=== PATIENT | female | born 1975 | race Caucasian/White ===

== ENCOUNTER 2020-09-29 16:05 | Outpatient (CLI) | payer OTHER, SELFPAY ==
--- NOTE | ~2020-09-29 | MR_ITS ---
. EXAMINATION: MR lumbar spine wo con DATE: 09/29/2020 17:37 INDICATION: Lumbar radiculopathy. TECHNIQUE: Magnetic resonance imaging (MRI) of the lumbar spine was performed without intravenous con trast. Sequences included sagittal T2-weighted FSE, sagittal T2-weighted FS FSE, sagittal T1-weighted FSE, and axial T2-weighted FSE. COMPARISON: None FINDINGS: Bone alignment is normal. There are Schmorl's nodes from T11-T12 through L2-L3. There is mi ldly decreased disc height at L3-L4. There is moderately decreased disc height at L5-S1 with endplate remodeling. The distal spinal cord signal intensity is normal. The conus medullaris is at L1-L2. The following disc levels are specifically discussed: L1-L2: The disc does not extend beyond the endplate margin. There is mild bilateral facet joint osteo arthritis. There is no neural foraminal stenosis. There is no central canal stenosis. L2-L3: The disc does not extend beyond the endplate margin. There is mild bilateral facet joint osteo arthritis. There is no neural foraminal stenosis. There is no central canal stenosis. L3-L4: The disc is bulging. There is mild bilateral facet joint osteoarthritis. There is mild bilater al neural foraminal stenosis. There is mild central canal stenosis. L4-L5: The disc is bulging. There is mild bilateral facet joint osteoarthritis. There is mild left ne ural foraminal stenosis. There is no central canal stenosis. L5-S1: The disc is bulging and has an annular fissure. There is mild bilateral facet joint osteoarthr itis. There is mild bilateral neural foraminal stenosis. There is mild central canal stenosis. IMPRESSION: 1. Mild lumbar spondylosis. Reviewed, dictated and finalized at location A. CIPAL DEVELOPER IMPRESSION: 1. Mild lumbar spondylosis.
--- NOTE | ~2020-09-29 | MR_ITS ---
EXAMINATION: MR cervical spine wo con DATE: 09/29/2020 17:37 INDICATION: Cervical radiculopathy. TECHNIQUE: Magnetic resonance imaging (MRI) of the cervical spine was performed without intravenous c ontrast. Sequences included sagittal T2-weighted FSE, sagittal STIR FSE, sagittal T1-weighted FSE, ax ial MERGE, and axial T2-weighted FSE. COMPARISON: None FINDINGS: Bone alignment is normal. Vertebral body heights are normal. There is mildly decreased disc height at C4-C5. The spinal cord signal intensity is normal. The following disc levels are specifica lly discussed: C2-C3: There is a central extrusion. There is no uncovertebral joint osteoarthritis. There is moderat e right and severe left facet joint osteoarthritis. There is mild bilateral neural foraminal stenosis . There is no central canal stenosis. C3-C4: The disc is bulging. There is mild left uncovertebral joint osteoarthritis. There is mild righ t and severe left facet joint osteoarthritis. There is mild left neural foraminal stenosis. There is mild disc is bulging. central canal stenosis. C4-C5: The disc is bulging. There is mild bilateral uncovertebral joint osteoarthritis. There is mild right and moderate left facet joint osteoarthritis. There is mild left neural foraminal stenosis. Th ere is mild central canal stenosis. C5-C6: The disc does not extend beyond the endplate margin. There is no uncovertebral joint osteoarth ritis. There is mild bilateral facet joint osteoarthritis. There is no neural foraminal stenosis. The re is no central canal stenosis. C6-C7: The disc is bulging. There is no uncovertebral joint osteoarthritis. There is no facet joint o steoarthritis. There is mild right neural foraminal stenosis. There is no central canal stenosis. C7-T1: The disc does not extend beyond the endplate margin. There is no uncovertebral joint osteoarth ritis. There is mild bilateral facet joint osteoarthritis. There is no neural foraminal stenosis. The re is no central canal stenosis. IMPRESSION: 1. Mild cervical spondylosis. Reviewed, dictated and finalized at location A. UNTING SYSTEM EXPERT
== END 2020-09-29 16:06 ==
PROVIDERS: Visit Provider Nurse Practitioner Family
DX: M47.26 Other spondylosis with radiculopathy, lumbar region (principal); M47.22 Other spondylosis with radiculopathy, cervical region
CPT/HCPCS: 72141; 72148

== ENCOUNTER 2022-12-21 19:08 | Emergency (ER) | payer OTHER, MEDICAID, SELFPAY ==
[2022-12-21 19:14] VITALS: BP 110/70; PULSE 91; RESP 20; TEMP 36.5; O2SAT 100
[2022-12-21] MEDS: ACETAMINOPHEN 500 MG TABLET 1000 MG PO (20:13)
[2022-12-21] MEDS: IBUPROFEN 400 MG TABLET 800 MG PO (20:14)
[2022-12-21 20:27] VITALS: BP 119/70; PULSE 80; O2SAT 98
[2022-12-21 20:54] VITALS: BP 167/106; PULSE 93; O2SAT 99
[2022-12-21 21:04] VITALS: BP 131/60; PULSE 78; O2SAT 98
--- NOTE | 2022-12-21 21:54 | ED.GENADULT ---
HPI - General Adult General Chief complaint: Back Pain/Injury Stated complaint: chronic hip, neck, and back pain Time Seen by Provider: 12/21/22 19:23 History of Present Illness HPI narrative: This is a 47-year-old female with history of chronic pain presenting to ED with left leg pain. Patient states that every time she steps on her right leg she gets a stabbing in her brain. Patient has that she has had chronic pain with this for a long period of time. She has seen a pain specialist. She has taken [place] 7.5 mg x 5 and standing x4 today. She has not taken Motrin or Tylenol. She follows with a pain specialist Dr. Cordova. patient denies weakness but the pain is starting to inhibit her function. Related Data Home Medications Medication Instructions Recorded Confirmed albuterol sulfate 90 mcg/actuation 1 inh inhalation Q4H 11/11/22 aerosol inhaler dulaglutide 4.5 mg/0.5 mL 4.5 mg subcut WEEKLY 11/11/22 subcutaneous pen injector (Trulicity) hydrocodone 5 mg-acetaminophen 325 1 tablet PO Q8H PRN 11/11/22 mg tablet insulin degludec 100 unit/mL (3 15 unit subcut QHS 11/11/22 mL) subcutaneous pen (Tresiba FlexTouch U-100 insulin) insulin lispro 100 unit/mL 1 sliding scale dose subcut 11/11/22 subcutaneous cartridge (Humalog USEASDIRECTD U-100 Insulin) metformin 1,000 mg tablet 1,000 mg PO BID 11/11/22 tiotropium bromide 2.5 2 puff inhalation DAILY 11/11/22 mcg/actuation mist for inhalation (Spiriva Respimat) buspirone 7.5 mg tablet 15 mg PO BID 11/28/22 cyclobenzaprine 10 mg tablet 10 mg PO 11/28/22 dextroamphetamine-amphetamine 20 20 mg PO TID 11/28/22 mg tablet (Adderall) glimepiride 2 mg tablet 2 mg PO BID 11/28/22 lidocaine 5 % topical ointment 1 applic topical 11/28/22 methylprednisolone 4 mg tablets in 4 mg PO 11/28/22 a dose pack phentermine 15 mg capsule 15 mg PO DAILY 11/28/22 topiramate 50 mg tablet 50 mg PO 11/28/22 Allergies Allergy/AdvReac Type Severity Reaction Status Date / Time baclofen Allergy Severe Hives Verified 11/28/22 08:25 cephalexin [From Keflex] Allergy Severe Anaphylactic Verified 11/28/22 08:25 Shock ketorolac [From Toradol] Allergy Severe Itching Verified 11/28/22 08:25 meloxicam [From Mobic] Allergy Severe Rash Verified 11/28/22 08:25 tramadol Allergy Severe Hives Verified 11/28/22 08:25 fluticasone furoate Allergy Rash Verified 12/21/22 19:10 [From Breo Ellipta] oxycodone Allergy Anaphylaxis Verified 12/21/22 19:10 vilanterol Allergy Rash Verified 12/21/22 19:10 [From Breo Ellipta] PMFSH Past Medical History Medical History Abnormal breast biopsy ADHD Asthma Chronic pain due to trauma FH: cholecystectomy Hip dysplasia Large mass of right breast Mitral valve dysplasia Screening mammogram for breast cancer Type 2 diabetes with decreased circulation Unsatisfactory cervical Papanicolaou smear Surgical History Surgical History Delivery by section History of tonsillectomy Family History Family History Sibling Congestive heart failure Diabetes mellitus Father Lung cancer Mother Diabetes mellitus Other Heart disease Hypertension Social History Social History Smoking packs per day: 1.5 Smoking cigarettes per day: 30.0 Years smoked: 35 Smoking pack-years: 52.50 Smoking status: Current every day smoker Alcohol intake: current Substance use: current Last use: thc cbd Living arrangements: with family Additional living arrangements comments: boyfriend and children Occupation/Education: unemployed Gender identity (if verbalized by the patient): Female Sexual Orientation (if Verbalized by the Patient): Straight or Heterosexual Exam Narrative: APPEARANCE:
[2022-12-21 22:29] VITALS: BP 128/79; PULSE 72; O2SAT 99
== END 2022-12-21 22:30 | disposition home or self-care (01) ==
PROVIDERS: Emergency Provider Emergency Medicine
DX: G89.29 Other chronic pain (principal); M25.551 Pain in right hip; M54.9 Dorsalgia, unspecified; M54.2 Cervicalgia; E11.9 Type 2 diabetes mellitus without complications; F17.210 Nicotine dependence, cigarettes, uncomplicated; Z79.891 Long term (current) use of opiate analgesic
CPT/HCPCS: 96365; 99284; A9270; J7050

== ENCOUNTER 2023-07-18 22:32 | Observation (INO) | payer OTHER, MEDICAID, SELFPAY ==
--- NOTE | ~2023-07-18 | CT_ITS ---
CT of the Abdomen and Pelvis, and of the lumbar spine: Indication: Pain Technique: 2.5 mm axial scans were obtained through the abdomen and pelvis following intravenous adm inistration of 100 cc of Omnipaque 350. Axial imaging of the lumbar spine was also performed. Dose re duction technique was used on this scan by utilizing automated exposure control and iterative reconst ruction technique. The dose-length product (DLP) was 903.48 mGy-cm. Abdomen/pelvis Findings: Scans through the lung bases demonstrates subtle mosaic attenuation pattern . The liver, spleen, pancreas, and kidneys are within normal limits. Cholecystectomy clips are present. There is a 2 cm left adrenal nodule. There is a 1 cm right adrenal nodule. These are both indetermin ate by Hounsfield units. There are atherosclerotic calcifications of the aorta. No lymphadenopathy. No bowel obstruction or bowel wall thickening. There is no evidence to suggest acute appendicitis. Images through the pelvis were performed. Urinary bladder unremarkable. 2.2 cm right ovarian cyst not ed. No ascites. Lumbar spine findings: There is no fracture or subluxation lumbar spine. Vertebral bodies maintain no rmal height and alignment. There is severe degenerative disc narrowing at L5-S1. Remaining interverte bral discs are well-preserved. At L1-L2, L2-L3, L3-L4, L4-L5, there is no significant disc bulge or herniation. No spinal canal sten osis or neural foraminal narrowing at these levels. At L5-S1, there is mild disc bulge with minimal facet hypertrophy. No spinal canal stenosis. There is advanced bilateral neural foraminal compromise. Impression: Subtle mosaic attenuation pattern of the lungs. Diagnostic considerations could include bronchiolitis , asthma, hypersensitivity pneumonitis, or chronic interstitial disease. Bilateral adrenal nodules, indeterminate, as detailed above. Consider follow-up nonemergent MR to att empt to confirm adenoma. Severe bilateral neural foraminal narrowing at L5-S1, as detailed above. Reviewed, dictated and finalized at location M. PROCESSOR Impression: Subtle mosaic attenuation pattern of the lungs. Diagnostic considerations could include bronchiolitis, asthma, hypersensitivity pneumonitis, or chronic inters titial disease. Bilateral adrenal nodules, indeterminate, as detailed above. Consider follow-up nonemergent MR to attempt to confirm adenoma. Severe bilateral neural foraminal narrowing at L5-S1, as detailed above.
--- NOTE | ~2023-07-18 | MR_ITS ---
EXAMINATION: MR lumbar spine wo con DATE: 07/19/2023 09:11 INDICATION: Lumbar stenosis. Leg weakness. TECHNIQUE: Magnetic resonance imaging (MRI) of the lumbar spine was performed without intravenous con trast. Sequences included sagittal T2-weighted FSE, sagittal T2-weighted FS FSE, sagittal T1-weighted FSE, and axial T2-weighted FSE. COMPARISON: Lumbar spine MRI 09/29/2020 FINDINGS: Bone alignment is normal. There is mild chronic anterior wedging of T12 vertebral body. The re are Schmorl's nodes at multiple levels. There is severely decreased disc height at L5-S1 with endp late remodeling. The distal spinal cord signal intensity is normal. The conus medullaris is at L1-L2. The following disc levels are specifically discussed: L1-L2: The disc does not extend beyond the endplate margin. There is mild bilateral facet joint osteo arthritis. There is no neural foraminal stenosis. There is no central canal stenosis. L2-L3: The disc does not extend beyond the endplate margin. There is moderate right and mild left fac et joint osteoarthritis. There is no neural foraminal stenosis. There is no central canal stenosis. L3-L4: The disc is bulging. There is mild bilateral facet joint osteoarthritis. There is mild bilater al neural foraminal stenosis. There is mild central canal stenosis. L4-L5: This is bulging and has an annular fissure. There is moderate bilateral facet joint osteoarthr itis. There is mild bilateral neural foraminal stenosis. There is no central canal stenosis. L5-S1: The disc is bulging and has an annular fissure. There is mild right and moderate left facet abigail int osteoarthritis. There is mild right and moderate left neural foraminal stenosis. There is mild ce ntral canal stenosis. IMPRESSION: 1. Severe lower lumbar spondylosis, worsened from 09/29/2020. Reviewed, dictated and finalized at location A. TENANCE OPERATOR
[2023-07-18 22:36] VITALS: BP 111/68; PULSE 83; RESP 15; TEMP 36.6; O2SAT 98
[2023-07-19] VITALS (8 sets, daily range): BP systolic 100–135; BP diastolic 55–75; PULSE 71–98; RESP 14–20; TEMP 36.3–36.8; O2SAT 74–100; BMI 33.1; BMI 33.8
[2023-07-19 00:34] LABS: Basophils Absolute Auto 0.1 K/mm3 (0.0-0.1); Eosinophils Absolute Auto 0.4 K/mm3 (0-0.3); Eosinophils Percent Auto 4.4 % (0-4.4); Hematocrit 44.9 % (37.0-47.0); Hemoglobin 14.6 g/dL (12.0-15.0); Immature Granulocyte Absolute 0.05 K/mm3 (0.00-0.031); Immature Granulocyte Percent A 0.5 % (0-0.5); Lymphocytes Absolute Auto 3.33 K/mm3 (0.9-3.2); Lymphocytes Percent Auto 33.1 % (18.3-44.2); Mean Corpuscular HGB Conc 32.5 g/dl (32-36); Mean Corpuscular Hemoglobin 30.3 pg (26-34); Mean Corpuscular Volume 93.2 fl (80-100); Mean Platelet Volume 9.6 fl (7.4-10.4); Monocytes Absolute Auto 0.7 K/mm3 (0.1-0.6); Monocytes Percent Auto 6.9 % (2.6-8.5); Neutrophils Absolute Auto 5.4 K/mm3 (1.3-6.7); Neutrophils Percent Auto 54.1 % (45.5-73.1); Platelet Count Result 294 k/mm3 (150-375); Red Blood Count 4.82 M/mm3 (4.2-5.4); Red Cell Distribution Width 12.9 % (11.5-14.5); White Blood Count 10.1 K/mm3 (4.5-10.0)
[2023-07-19 00:49] LABS: Lactic Acid Reflex 1.3 mmol/L (0.7-2.0)
[2023-07-19 00:50] LABS: Alanine Aminotransferase 14 U/L (6-35); Albumin Level 3.7 g/dL (3.5-5.1); Alkaline Phosphatase 86 U/L (38-126); Anion Gap 3 mmol/L (8-16); Aspartate Amino Transferase 17 U/L (14-36); Bilirubin,Total 0.2 mg/dL (0.2-1.3); Blood Urea Nitrogen 14 mg/dL (7-17); Calcium 9.1 mg/dL (8.4-10.2); Carbon Dioxide 25 mmol/L (22-30); Chloride 106 mmol/L (98-107); Estimated CRCL calculation 109 ml/min; Estimated Glomerular Filt Rate > 60; Glucose 174 mg/dL (65-110); Potassium 4.2 mmol/L (3.4-5.0); Sodium 134 mmol/L (137-145)
--- NOTE | 2023-07-19 01:04 | ED.LOWEXIN ---
HPI - Extremity Injury (Lower) General Chief Complaint: Extremity Injury, Lower Stated Complaint: right hip pain Time Seen by Provider: 07/18/23 23:54 History of Present Illness HPI Narrative: patient presents the emergency department complained of her right leg going out. She has had symptoms since December 2022. She has had chronic leg pain for. In December she started have steroid injections. She has had increasing symptoms for the past couple months and specifically has been falling frequently over the past 3-4 days. Her primary care doctor prescribes fentanyl and Lyrica. She has seen multiple different pain management doctors. She denies urinary or stool incontinence. Denies symptoms consistent with saddle anesthesia. Related Data Home Medications Medication Instructions Recorded Confirmed albuterol sulfate 90 mcg/actuation 1 inh inhalation Q4H 11/11/22 07/19/23 aerosol inhaler dulaglutide 4.5 mg/0.5 mL 4.5 mg subcut WEEKLY 11/11/22 07/19/23 subcutaneous pen injector (Trulicity) insulin degludec 100 unit/mL (3 15 unit subcut QHS 11/11/22 07/19/23 mL) subcutaneous pen (Tresiba FlexTouch U-100 insulin) insulin lispro 100 unit/mL 1 sliding scale dose subcut 11/11/22 07/19/23 subcutaneous cartridge (Humalog USEASDIRECTD U-100 Insulin) metformin 1,000 mg tablet 1,000 mg PO BID 11/11/22 07/19/23 dextroamphetamine-amphetamine 20 20 mg PO TID 11/28/22 07/19/23 mg tablet (Adderall) glimepiride 2 mg tablet 2 mg PO BID 11/28/22 07/19/23 celecoxib 200 mg capsule 200 mg PO BID 07/19/23 07/19/23 fentanyl 12 mcg/hr transdermal 07/19/23 patch nortriptyline 25 mg capsule 25 mg PO HS 07/19/23 07/19/23 pregabalin 75 mg capsule (Lyrica) 75 mg PO TID 07/19/23 07/19/23 Allergies Allergy/AdvReac Type Severity Reaction Status Date / Time baclofen Allergy Severe Hives Verified 07/19/23 07:05 cephalexin [From Keflex] Allergy Severe Anaphylactic Verified 07/19/23 07:05 Shock ketorolac [From Toradol] Allergy Severe Itching Verified 07/19/23 07:05 meloxicam [From Mobic] Allergy Severe Rash Verified 07/19/23 07:05 oxycodone Allergy Severe Anaphylaxis Verified 07/19/23 07:09 tramadol Allergy Severe Hives Verified 07/19/23 07:05 fluticasone furoate Allergy Rash Verified 07/19/23 07:05 [From Breo Ellipta] vilanterol Allergy Rash Verified 07/19/23 07:05 [From Breo Ellipta] Review of Systems Review of Systems: negative except what is documented in the [facility] Past Medical History Medical History Abnormal breast biopsy ADHD Asthma Chronic pain due to trauma FH: cholecystectomy Hip dysplasia Large mass of right breast Mitral valve dysplasia Screening mammogram for breast cancer Type 2 diabetes with decreased circulation Unsatisfactory cervical Papanicolaou smear Surgical History Surgical History Delivery by section History of tonsillectomy Family History Family History Sibling Congestive heart failure Diabetes mellitus Father Lung cancer Mother Diabetes mellitus Other Heart disease Hypertension Social History Social History Smoking packs per day: 2.5 Smoking cigarettes per day: 50.0 Years smoked: 35 Smoking pack-years: 87.50 Smoking status: Current every day smoker Tobacco type: cigarettes Alcohol intake: current Drinks per week: 1 Substance use: never Last use: thc cbd Lack of Transportation: No Lack of Food: Never True Current Housing: I Have Housing Concerned About Future Housing: No Difficulty Paying Gas/Electric Bills: YES Difficulty Paying for Meds: No Currently Unemployed: YES Education: Associate Degree Difficulty w/ Childcare or Family Care: YES Living arrangements: with family Additional living arran
[2023-07-19 02:02] LABS: Appearance Urine Turbid (Clear); Bacteria Urine 4+ /hpf; Bilirubin Urine Negative (Negative); Blood Urine Negative (Negative); Color Urine Yellow (Yellow); Glucose Urine UA 2+ mg/dL (Negative); Ketones Urine Negative (Negative); Leukocyte Esterase Ur Negative LEU/UL (Negative); Nitrate Urine Positive (Negative); Non Pathogenic Casts 0-2; Protein Urine Negative (Negative); RBC Urine 0-2 /hpf (0-2); Squamous Epithelial Cell Urine Few /hpf (Few); pH Urine 5.5 (5.0-9.0)
[2023-07-19 02:13] LABS: Specific Grav Ur 1.057 (1.001-1.035)
[2023-07-19 02:14] LABS: Add Urine Microscopic? YES
--- NOTE | 2023-07-19 03:45 | PC.NURSE ---
Pt was taken to and from bathroom in wheelchair and ambulated back to bed with steady gait.
--- NOTE | 2023-07-19 06:10 | PM.IMHP ---
H&P: HPI History of Present Illness Date/Time: 07/19/23 06:10 Chief Complaint: back pain Narrative: patient history of chronic back pain which is worsening, she has been following up with orthopedic surgeon and she was told that she would need surgery however this would not be done unless she cut down on tobacco use. She presents the emergency department complained of her right leg going out.? She has had symptoms since December 2022.? She has had chronic leg pain for.? In December she started have steroid injections.? She has had increasing symptoms for the past couple months and specifically has been falling frequently over the past 3-4 days.? Her primary care doctor prescribes fentanyl and Lyrica.? She has seen multiple different pain management doctors.? She denies urinary or stool incontinence.? Denies symptoms consistent with saddle anesthesia.? she was evaluated in the ER found to have severe narrowing of L5-S1, causative factor patient is unable to bear weight, I was consulted to admit this patient for further evaluation with MRI. during my encounter the patient, she has had pain is made no she would have preferred discharged on pain medication. Review of Systems Review of Systems: All systems reviewed & are unremarkable except as noted in HPI and below PMFSH Past Medical History Medical History Abnormal breast biopsy ADHD Asthma Chronic pain due to trauma FH: cholecystectomy Hip dysplasia Large mass of right breast Mitral valve dysplasia Screening mammogram for breast cancer Type 2 diabetes with decreased circulation Unsatisfactory cervical Papanicolaou smear Surgical History Surgical History Delivery by section History of tonsillectomy Family History Family History Sibling Congestive heart failure Diabetes mellitus Father Lung cancer Mother Diabetes mellitus Other Heart disease Hypertension Social History Social History Smoking packs per day: 1.5 Smoking cigarettes per day: 30.0 Years smoked: 35 Smoking pack-years: 52.50 Smoking status: Current every day smoker Alcohol intake: current Substance use: current Last use: thc cbd Living arrangements: with family Additional living arrangements comments: boyfriend and children Occupation/Education: unemployed Gender identity (if verbalized by the patient): Female Sexual Orientation (if Verbalized by the Patient): Straight or Heterosexual Meds Home Medications and Allergies Home Medications Medication Instructions Recorded Confirmed Type albuterol sulfate 90 mcg/actuation 1 inh inhalation Q4H 11/11/22 History aerosol inhaler dulaglutide 4.5 mg/0.5 mL 4.5 mg subcut WEEKLY 11/11/22 History subcutaneous pen injector (Trulicity) hydrocodone 5 mg-acetaminophen 325 1 tablet PO Q8H PRN 11/11/22 History mg tablet insulin degludec 100 unit/mL (3 15 unit subcut QHS 11/11/22 History mL) subcutaneous pen (Tresiba FlexTouch U-100 insulin) insulin lispro 100 unit/mL 1 sliding scale dose subcut 11/11/22 History subcutaneous cartridge (Humalog USEASDIRECTD U-100 Insulin) metformin 1,000 mg tablet 1,000 mg PO BID 11/11/22 History tiotropium bromide 2.5 2 puff inhalation DAILY 11/11/22 History mcg/actuation mist for inhalation (Spiriva Respimat) buspirone 7.5 mg tablet 15 mg PO BID 11/28/22 History cyclobenzaprine 10 mg tablet 10 mg PO 11/28/22 History dextroamphetamine-amphetamine 20 20 mg PO TID 11/28/22 History mg tablet (Adderall) glimepiride 2 mg tablet 2 mg PO BID 11/28/22 History lidocaine 5 % topical ointment 1 applic topical 11/28/22 History methylprednisolone 4 mg tablets in 4 mg PO 11/28/22 History a dose pack phentermine 15 mg capsule 15 mg PO DAILY
[2023-07-19] MEDS: levoFLOXacin 500 MG/D5W 100 ML 500 MG/100 ML BAG 100 MG IVPB (06:25)
[2023-07-19] MEDS: MORPHINE SULFATE (*CRX) 2 MG/ML INJ IV PUSH ×2 (07:49→15:18)
[2023-07-19 08:00] LABS: Basophils Absolute Auto 0.1 K/mm3 (0.0-0.1); Basophils Percent Auto 0.9 % (0.2-1.2); Eosinophils Absolute Auto 0.4 K/mm3 (0-0.3); Eosinophils Percent Auto 4.7 % (0-4.4); Hematocrit 45.7 % (37.0-47.0); Hemoglobin 14.5 g/dL (12.0-15.0); Immature Granulocyte Absolute 0.03 K/mm3 (0.00-0.031); Immature Granulocyte Percent A 0.3 % (0-0.5); Lymphocytes Absolute Auto 2.97 K/mm3 (0.9-3.2); Lymphocytes Percent Auto 33.2 % (18.3-44.2); Mean Corpuscular HGB Conc 31.7 g/dl (32-36); Mean Corpuscular Hemoglobin 30.2 pg (26-34); Mean Corpuscular Volume 95.2 fl (80-100); Mean Platelet Volume 9.5 fl (7.4-10.4); Monocytes Absolute Auto 0.6 K/mm3 (0.1-0.6); Monocytes Percent Auto 6.8 % (2.6-8.5); Neutrophils Absolute Auto 4.8 K/mm3 (1.3-6.7); Neutrophils Percent Auto 54.1 % (45.5-73.1); Platelet Count Result 289 k/mm3 (150-375)
[2023-07-19 08:08] LABS: Anion Gap 5 mmol/L (8-16); Blood Urea Nitrogen 14 mg/dL (7-17); Calcium 8.9 mg/dL (8.4-10.2); Carbon Dioxide 28 mmol/L (22-30); Chloride 104 mmol/L (98-107); Estimated CRCL calculation 97 ml/min; Estimated Glomerular Filt Rate > 60; Glucose 130 mg/dL (65-110); Potassium 4.1 mmol/L (3.4-5.0); Sodium 137 mmol/L (137-145)
[2023-07-19] MEDS: CELECOXIB 200 MG CAPSULE PO ×2 (09:35→17:18)
[2023-07-19] MEDS: metFORMIN HCL 500 MG TABLET 1000 MG PO ×2 (09:35→17:18)
[2023-07-19] MEDS: PREGABALIN (*CRX) 75 MG CAPSULE PO ×3 (09:36→17:18)
[2023-07-19] MEDS: GLIMEPIRIDE 2 MG TABLET PO ×2 (09:36→17:18)
[2023-07-19 12:31] LABS: Glucose Point of Care 202 mg/dl (65-105)
[2023-07-19] MEDS: INSULIN ASPART (*BKC) 100 UNITS/ML SUB-Q (12:34)
--- NOTE | 2023-07-19 15:24 | PM.IMPN ---
Progress Note: A&P Assessment and Plan (1) Lumbar radiculopathy: Code(s): M54.16 - Radiculopathy, lumbar region Status: Acute Assessment and Plan: worsening MRI, neuro surgery consulted. Patient also reports torn labrum and gluteus minimus on the affected extremity. This may be orthopedic or neurologic in nature however, there appears to be a component of medication seeking. (2) UTI (urinary tract infection): Code(s): N39.0 - Urinary tract infection, site not specified Status: Acute Assessment and Plan: Started with IV levofloxacin in the emergency department offered oral levofloxacin even if she signs out against medical advice. Also offered to urine culture and follow up on results if she were to to leave against medical advice. (3) Chronic back pain: Code(s): M54.9 - Dorsalgia, unspecified; G89.29 - Other chronic pain Status: Acute Assessment and Plan: Chronic back pain neck pain right hip pain prior trauma 3 years ago. Patient reported that she will need a walker. I offered to write a prescription for a walker upon discharge even if she leaves against medical advice but we could he and out the physical equipment. Plan NSGY consult UTI treatment even if patient leaves AMA Walker prescription even if patient leaves AMA Discussed we cannot give ketamine infusion for pain and we cannot escalate fentanyl patch prescription Time Spent With Patient Time with patient: Greater than 35 minutes Subjective Date/time seen: 07/19/23 15:24 Interval history: Patient admitted for MRI of lumbar spine due to right leg pain and weakness decreased function time. Patient reports that she only wanted to seek pain relief and that previously she had received ketamine in the emergency department and was pain free for 2 weeks. She reports that her primary care provider prescribes low-dose fentanyl patch but her PCP is also her psychiatrist's and they have been sending her to pain management where as pain management will only do injections and not narcotic pain medication. Patient denies any saddle paresthesias or urinary retention. Her bowels are normal functioning. She reports that she has previously seen neuro surgery and they will not do surgery on her because she is still smoking. She reports that she has an appointment upcoming with Orthopedics in a few days because she has right hip labrum and gluteus minimus tears. Patient tells me that she was not seeking admission and does not understand why the ER had to admit her however the report is that patient would not agree to discharge home from the ER so there is conflicting information regarding reason for admission. Patient initially told nursing that she had be discharged by noon today or else she would to leave AMA. MRI was completed showing significant stenosis worse since last exam. Due to decreased function in the leg we will fulfill our due diligence by consulting Neurosurgery. Patient now stating that she will see Neurosurgery as long as they see her today. Review of Systems Review of Systems: All systems reviewed & are unremarkable except as noted in HPI and below Exam Narrative: ?GENERAL: Well-appearing, well-nourished, and in no acute distress. HEAD: Normocephalic, atraumatic. EYES: PERRLA and EOMI. ENT: Nares clear, no rhinorrhea or epistaxis.? Mucous membranes moist. NECK: Supple. CHEST: Clear to auscultation.? No respiratory distress. HEART: Regular rate and rhythm. ABDOMEN: Soft, nontender, nondistended. EXTREMITIES: no injury, no tenderness. pt lower extremity strength 4/5 on the right and 5/5 on the left, able to transfer wheelchair to bed easily SKIN: Warm, dry, no rash. NEURO: No focal deficits.? Alert and oriented x3. PSYCH: Variable mood and affect ? Objective Data Vital Signs Vital Signs: Vital Signs - 24 hr 07/18/23 22:36 07/19/23 01:54 07/19/23 04:00 Temperature 36.6 C Pulse Rate 83 7
[2023-07-19 17:21] LABS: Glucose Point of Care 105 mg/dl (65-105)
--- NOTE | 2023-07-19 17:43 | WPDNEUROSGCN ---
Assessment and Plan Assessment and plan (1) Right hip pain: Code(s): M25.551 - Pain in right hip Status: Acute (2) Lumbar spondylosis: Code(s): M47.816 - Spondylosis without myelopathy or radiculopathy, lumbar region Status: Acute Plan Ms. Roth is a 47-year-old female with a long history of back pain and approximately one year of right groin, hip, and anterior thigh pain who presented to the ER last night for intractable groin and thigh pain. On physical exam, she has significant pain with hip flexion and JOHN testing. MRI lumbar spine shows degenerative disc disease at L5-S1 with mild right neuroforaminal stenosis. I discussed with her that I do not think her current symptoms are related to her lumbar spine. I would not recommend any intervention for her back at this time but would instead recommend inpatient vs outpatient orthopedic evaluation. She fortunately has an outpatient appointment scheduled already in 2 days. If she needs any further follow up for her back, she can follow up with Dr. George at [facility] as she is already established with his team and has been offered surgery. Consult date: 07/19/23 HPI: Damaris Roth is a 47 year old female with history of DM who presented to the ER last night with intractable right groin and anterior thigh pain. The patient has a long history of back pain for which she has seen Dr. George's team at [facility] and has reportedly been offered surgery if she were to quit smoking. She reports a one-year history of right-sided hip pain radiating into the groin and anterior thigh without radiation past the knee. This is severe when walking. For the last 2-3 months, her leg will give out when walking. She has some mild similar pain on the left side. She denies paresthesias or bowel/bladder changes. She has also been seeing an orthopedic surgeon through [facility] for her hip and has been found to have a number of pathologies related to the hip as well. She has had an injection in the hip in the past which was helpful. She has follow up with this physician this coming Monday. Review of Systems Review of Systems: All systems reviewed & are unremarkable except as noted in HPI and below PMFSH Past Medical History Medical History Abnormal breast biopsy ADHD Asthma Chronic pain due to trauma FH: cholecystectomy Hip dysplasia Large mass of right breast Mitral valve dysplasia Screening mammogram for breast cancer Type 2 diabetes with decreased circulation Unsatisfactory cervical Papanicolaou smear Surgical History Surgical History Delivery by section History of tonsillectomy Family History Family History Sibling Congestive heart failure Diabetes mellitus Father Lung cancer Mother Diabetes mellitus Other Heart disease Hypertension Social History Social History Smoking packs per day: 2.5 Smoking cigarettes per day: 50.0 Years smoked: 35 Smoking pack-years: 87.50 Smoking status: Current every day smoker Tobacco type: cigarettes Alcohol intake: current Drinks per week: 1 Substance use: never Last use: thc cbd Lack of Transportation: No Lack of Food: Never True Current Housing: I Have Housing Concerned About Future Housing: No Difficulty Paying Gas/Electric Bills: YES Difficulty Paying for Meds: No Currently Unemployed: YES Education: Associate Degree Difficulty w/ Childcare or Family Care: YES Living arrangements: with family Additional living arrangements comments: boyfriend and children Occupation/Education: unemployed Gender identity (if verbalized by the patient): Female Sexual Orientation (if Verbalized by the Patient): Straight or Heterosexual Spiritual care co
--- NOTE | 2023-07-19 17:52 | PM.DS ---
DS: Admitting Diagnosis Discharge Date 07/19/2023 Admitting Diagnosis Lumbar radiculopathy, UTI, chronic back pain DS: Discharge Diagnosis Discharge Diagnosis (1) Lumbar radiculopathy: Code(s): M54.16 - Radiculopathy, lumbar region Status: Acute (2) UTI (urinary tract infection): Code(s): N39.0 - Urinary tract infection, site not specified Status: Acute (3) Chronic back pain: Code(s): M54.9 - Dorsalgia, unspecified; G89.29 - Other chronic pain Status: Chronic (4) Right hip pain: Code(s): M25.551 - Pain in right hip Status: Chronic DS: Summary Hospital Course Reason for hospitalization: decreased function right leg, lumbar stenosis Hospital Course: 07/19 H&P: patient? history of chronic back pain which is worsening, she has been following up with orthopedic surgeon and she was told that she would need surgery however this would not be done unless she cut down on tobacco use. She presents the emergency department complained of her right leg going out.? She has had symptoms since December 2022.? She has had chronic leg pain for.? In December she started have steroid injections.? She has had increasing symptoms for the past couple months and specifically has been falling frequently over the past 3-4 days.? Her primary care doctor prescribes fentanyl and Lyrica.? She has seen multiple different pain management doctors.? She denies urinary or stool incontinence.? Denies symptoms consistent with saddle anesthesia.? ?she was evaluated in the ER found to have severe narrowing of L5-S1,? causative factor patient is unable to bear weight,? I was consulted to admit this patient for further evaluation with MRI. ? during my encounter the patient,? she has had pain is made no she would have preferred discharged on pain medication. 07/19 Rounds: Patient admitted for MRI of lumbar spine due to right leg pain and weakness decreased function time.? Patient reports that she only wanted to seek pain relief and that previously she had received ketamine in the emergency department and was pain free for 2 weeks.? She reports that her primary care provider prescribes low-dose fentanyl patch but her PCP is also her psychiatrist's and they have been sending her to pain management where as pain management will only do injections and not narcotic pain medication.? Patient denies any saddle paresthesias or urinary retention.? Her bowels are normal functioning.? She reports that she has previously seen neuro surgery and they will not do surgery on her because she is still smoking.? She reports that she has an appointment upcoming with Orthopedics in a few days because she has right hip labrum and gluteus minimus tears.? Patient tells me that she was not seeking admission and does not understand why the ER had to admit her however the report is that patient would not agree to discharge home from the ER so there is conflicting information regarding reason for admission.? Patient initially told nursing that she had be discharged by noon today or else she would to leave AMA.? MRI was completed showing significant stenosis worse since last exam.? Due to decreased function in the leg we will fulfill our due diligence by consulting Neurosurgery.? Patient now stating that she will see Neurosurgery as long as they see her today. 07/19 Discharge: patient was evaluated by Neurosurgery and her lumbar stenosis does not seem to be the problem with her right leg pain and weakness. She has torn muscles in her right hip for which she has orthopedic appointment in a few days. Neuro surgery cleared patient for discharge and patient insisted on discharge probably. We did prescribe Levaquin for urinary tract infection and wrote a prescription for a 2 wheeled walker. Time Spent with Patient Time attestation: Total time spent providing and/or coordinating discharge services: 35 minutes Time spent: Greater than 30 minutes Exam Narrative: ?GENERAL
== END 2023-07-19 18:35 | disposition home or self-care (01) ==
LOC: ANHED 07-19 00:01 → ANH2MED 07-19 06:18
PROVIDERS: Admitting Provider Student in an Organized Health Care Education/Training Program; Emergency Provider Emergency Medicine; Visit Provider Student in an Organized Health Care Education/Training Program
DX: M47.816 Spondylosis without myelopathy or radiculopathy, lumbar region (principal); G89.29 Other chronic pain; M79.604 Pain in right leg; M25.551 Pain in right hip; R29.6 Repeated falls; N39.0 Urinary tract infection, site not specified; B96.20 Unspecified Escherichia coli [E. coli] as the cause of diseases classified elsewhere; F90.9 Attention-deficit hyperactivity disorder, unspecified type; E11.59 Type 2 diabetes mellitus with other circulatory complications; Q23.8 Other congenital malformations of aortic and mitral valves; J45.909 Unspecified asthma, uncomplicated; F17.210 Nicotine dependence, cigarettes, uncomplicated; F10.90 Alcohol use, unspecified, uncomplicated; Z79.51 Long term (current) use of inhaled steroids; Z79.52 Long term (current) use of systemic steroids; Z79.3 Long term (current) use of hormonal contraceptives; Z79.85 Long-term (current) use of injectable non-insulin antidiabetic drugs; Z79.1 Long term (current) use of non-steroidal anti-inflammatories (NSAID); Z79.4 Long term (current) use of insulin; Z79.891 Long term (current) use of opiate analgesic; Z79.899 Other long term (current) drug therapy; Z83.3 Family history of diabetes mellitus; Z82.49 Family history of ischemic heart disease and other diseases of the circulatory system
CPT/HCPCS: 36415; 72132; 72148; 74177; 80048; 80053; 81001; 82948; 83605; 85025; 87077; 87086; 87088; 87186; 96374; 96375; 96376; 99285; A9270; G0378; J1815; J1956; J2270; Q9967

== ENCOUNTER 2024-04-18 13:13 | Outpatient (CLI) | payer OTHER, SELFPAY | END 2024-04-18 13:14 | disposition home or self-care (01) | LOC: ANHAUDIO 13:13 | DX: H90.3 Sensorineural hearing loss, bilateral (principal) | CPT/HCPCS: 92557; 92567 ==